=== PATIENT | male | born 1980 | race Caucasian/White ===

== ENCOUNTER 2019-03-25 19:17 | Observation (INO) ==
[2019-03-25 19:39] LABS: Basophils # 0.1 K/mm3 (0-0.2); Basophils % 0.4 % (0.1-2.0); Eosinophils # 0.2 K/mm3 (0.0-0.4); Eosinophils % 1.6 % (0.1-12.0); Hematocrit 43.7 % (42.0-52.0); Hemoglobin 14.5 g/dL (14.1-18.0); Lymphocytes # 5.3 K/mm3 (0.7-4.5); Lymphocytes % 49.5 % (10-50); Mean Corpuscular HGB Conc 33.2 g/dL (31.8-35.4); Mean Corpuscular Volume 97.7 fl (80-94); Mean Platelet Volume 7.5 fl (7.4-10.4); Monocytes # 0.6 K/mm3 (0.1-1.0); Monocytes % 5.3 % (1.7-9.3); Neutrophils # 4.6 K/mm3 (1.8-7.8); Neutrophils % 43.1 % (37.0-80.0); Platelet Count 317 K/mm3 (142-424); Red Blood Count 4.48 M/mm3 (4.60-6.20); Red Cell Distribution Width 13.2 % (11.5-17.5); White Blood Count 10.8 K/mm3 (4.8-10.8)
--- NOTE | 2019-03-25 19:50 | Emergency Department Note ---
ED Disposition Clinical Impression: Tobacco use Chest pain Qualifiers: Chest pain type: precordial pain Qualified Code(s): R07.2 - Precordial pain Disposition: Admitted as Observation Condition on Discharge: Good Referrals: Provider,Referral, [Primary Care Provider] - - Critical Care Critical Care Time: No Attestation: On 03/25/19, the high probability of a clinically significant, sudden or life threatening deterioration of the following system(s) required my full and direct attention, intervention and personal management. The time I documented below is in addition to time spent performing reported procedures but includes the following listed in this critical care notation. Medical Decision Making - Medical Records Medical records reviewed: Yes: I reviewed the patient's medical records. - Emre Inquiry Pt receiving controlled substance: No Vital Signs: 03/25/19 19:18 03/25/19 19:30 03/25/19 19:42 Temperature 99.6 F Temperature Source Oral Pulse Rate [Left Radial] 110 H 86 80 Respiratory Rate 18 20 Blood Pressure [Right Arm] 144/93 H 123/91 H 105/87 L Blood Pressure Mean [Right Arm] 110 101 93 Blood Pressure Source [Right Arm] Automatic Cuff Automatic Cuff Automatic Cuff Blood Pressure Position [Right Arm] Sitting Sitting Sitting 02 Sat by Pulse Oximetry 99 96 96 Oxygen Delivery Method Room Air Room Air Room Air Oxygen Flow Rate (LPM) 03/25/19 19:47 03/25/19 20:15 03/25/19 20:29 Temperature Temperature Source Pulse Rate [Left Radial] 82 71 62 Respiratory Rate 15 16 Blood Pressure [Right Arm] 127/83 112/80 106/66 L Blood Pressure Mean [Right Arm] 97 90 79 Blood Pressure Source [Right Arm] Automatic Cuff Blood Pressure Position [Right Arm] Sitting 02 Sat by Pulse Oximetry Oxygen Delivery Method Oxygen Flow Rate (LPM) 97 - Lab Data Lab results reviewed: Yes: I reviewed the patient's lab results. Lab Results 03/25/19 19:18: WBC 10.8, RBC 4.48 L, Hgb 14.5, Hct 43.7, MCV 97.7 H, MCH 32.4 H , MCHC 33.2, RDW 13.2, Plt Count 317, MPV 7.5, Neut % (Auto) 43.1, Lymph % (Auto) 49.5, [place] % (Auto) 5.3, Eos % (Auto) 1.6, Baso % (Auto) 0.4, Neut # (Auto) 4.6, Lymph # (Auto) 5.3 H, [place] # (Auto) 0.6, Eos # (Auto) 0.2, Baso # (Auto) 0.1 03/25/19 19:18: Sodium 140, Potassium 3.9, Chloride 103, Carbon Dioxide 28, Anion Gap 12.9, BUN 15, Creatinine 1.18, Estimated Creat Clear 131, Estimated GF R 68, Est GFR ( Amer) 83, Glucose 91, Calcium 8.4 L, Troponin I < 0.02 Result diagrams: 03/25/19 19:18 03/25/19 19:18 Orders (Tests/Meds): ED MEDICATIONS Generic Name Dose Route Start Last Admin Trade Name Freq PRN Reason Stop Dose Admin Sodium Chloride 1,000 mls @ 999 mls/hr 03/25/19 19:30 03/25/19 19:34 Sod Chlor 0.9% 1000ml Bag IV 03/25/19 20:30 999 mls/hr .Q1H1M BHAVIN Administration Discontinued Medications Generic Name Dose Route Start Last Admin Trade Name Freq PRN Reason Stop Dose Admin Aspirin 324 mg 03/25/19 19:30 03/25/19 19:34 Aspirin 81mg Chewable Tablet PO 03/25/19 19:31 324 mg ONCE ONE Administration Nitroglycerin 0.4 mg 03/25/19 19:30 03/25/19 19:35 Nitrostat 0.4mg Sl Tablet SL 03/25/19 19:31 0.4 mg ONCE ONE Administration Nitroglycerin 1 gm 03/25/19 19:56 03/25/19 19:57 Nitroglycerin 1 Inch Oint Udp TD 03/25/19 19:57 1 gm ONCE ONE Administration ORDERS Category Date Time Status XR chest 2V Stat Exams 03/25/19 19:29 Taken Basic Metabolic Panel Stat Lab 03/25/19 19:18 Results C-Reactive Protein Stat Lab 03/25/19 19:18 Results Complete Blood Count Auto Diff Stat Lab 03/25/19 19:18 Results Erythrocyte Sedimentation Rate Stat Lab 03/25/19 19:18 Results Troponin I Q3H Lab 03/25/19 22:45 Ordered Troponin I Q3H Lab 03/26/19 01:45 Ordered Troponin I Stat Lab 03/25/19 19:18 Results - Radiology Data #1 Image(s): Chest Image Reviewed: Yes I reviewed the patient's radiology image Preliminary Findings: Normal/NAD - ECG Data Tracing #1 Arrhythmias present: sinus tach Ischemic changes: non-specific ST-T wave changes - Physician Consults Physician Consulted: shiva Reason -: Admission Chest Pain HPI - General Chief Complaint: Chest Pain Stated Complaint: CP Time Seen by Provider: 03/25/19 19:45 Mode of Arrival: Ambulatory Source of Information: Patient, Medical Record Limitations: No Limitations Description of Symptoms (Recalled from ER Triage Doc. by RN): pt stated he has been having chest pain since 10am this morning. pt describes his pain as a sharp pain in the middle of his chest and some numbness in his left arm. pt rates his pain at a 7 at this time. - History of Present Illness HPI narrative: pt with ant chest pain during the day with no def radiation - he has hx of heart attack many yrs ago from energy drinks - he uses tob, not diabetic MD complaint: chest pain indicative of cardiac Onset (ago): hour(s) Duration: intermittent Activity at onset: during rest Pain location: left chest Severity: moderate Quality: sharp Pain radiation: LUE Risk Factors for CAD: Family Hx of CAD, Smoking Treatments prior to or on arrival for Cardiac Chest Pain: none - JENSEN Score for Non-Stemi Age of Patient: 40-49 years old Heart Rate: 110-149 bpm Systolic Blood Pressure: 140-159 mmHg Serum Creatinine: 0.80-1.19 mg/dl CHF [place] Class: I-No CHF Other Risk Factors: None Non-Stemi Risk Score: 80 - Related Data Home Medications Medication Instructions Recorded Confirmed No Known Home Medications 07/15/17 03/25/19 Allergies Allergy/AdvReac Type Severity Reaction Status Date / Time No Known Allergies Allergy Verified 07/15/17 15:37 [facility] History - Hepatitis A Screen Drug use history?: No High risk sexual behaviors?: No History of sexually transmitted infection?: No Currently employed?: No Childcare worker?: No Do you have indoor plumbing?: Yes Do you have electricity?: Yes Attestation statement:: This patient has been screened for Hepatitis A risk factors. I have reviewed the patient's past medical history: Yes Medical History: Denies:: Internal Pacemaker Other Surgeries: No: Pacemaker - Social History Smoking Status: Current every day smoker # Packs/Day (cigarettes): 2 Alcohol Intake: never Occupational Status: employed ROS Obtained: Yes All systems reviewed & no additional complaints - Constitutional Constitutional: Denies fever(s) - Eyes Eyes: Denies change in vision - ENT Ears, Nose, Mouth, and Throat: Denies sore throat - Cardiovascular Cardiovascular: Reports chest pain, Denies dyspnea - Respiratory Respiratory: No cough - Gastrointestinal Gastrointestingal: Denies: abdominal pain - Genitourinary Male Genitourinary: Denies hematuria - Musculoskeletal Musculoskeletal: Denies joint swelling - Integumentary/Breasts Skin/Breast: Denies rash - Neurologic Neurologic: Denies focal weakness, Denies seizure-like activity Physical Exam - General General appearance: alert - Head Head exam: normocephalic - Eye Eye exam: Present: PERRL, EOMI - ENT ENT exam: Present: mucous membranes moist - Neck Neck exam: Present: trachea midline - Respiratory Respiratory exam: Absent: respiratory distress - Cardiovascular Cardiovascular exam: Present: regular rate, systolic murmur - Abdominal Exam Abdominal exam: Present: soft - Extremities Exam Extremities exam: Present: full ROM. Absent: joint swelling - Neurological Exam Neurological exam: Present: alert, oriented X3, CN II-XII intact - Psychiatric Psychiatric exam: Present: normal affect - Skin Skin exam: Absent: rash
[2019-03-25 19:52] LABS: Anion Gap 12.9 mEq/L (5-15); Blood Urea Nitrogen 15 mg/dL (7-18); Calcium 8.4 mg/dL (8.5-10.1); Carbon Dioxide 28 mmol/L (21.0-32.0); Chloride 103 mmol/L (98-107); Glucose 91 mg/dL (74-106); Sodium 140 mmol/L (136-145)
[2019-03-25 20:42] LABS: Erythrocyte Sedimentation Rate 58 mm/hr (0-15)
[2019-03-25 20:56] LABS: C-Reactive Protein < 0.2 mg/dL (0.0-0.9)
[2019-03-26 06:20] LABS: Basophils % 0.4 % (0.1-2.0); Eosinophils # 0.2 K/mm3 (0.0-0.4); Eosinophils % 1.9 % (0.1-12.0); Hematocrit 39.9 % (42.0-52.0); Hemoglobin 13.1 g/dL (14.1-18.0); Lymphocytes # 4.6 K/mm3 (0.7-4.5); Lymphocytes % 46.5 % (10-50); Mean Corpuscular HGB Conc 32.9 g/dL (31.8-35.4); Mean Corpuscular Volume 98.8 fl (80-94); Mean Platelet Volume 7.4 fl (7.4-10.4); Monocytes # 0.5 K/mm3 (0.1-1.0); Monocytes % 4.6 % (1.7-9.3); Neutrophils # 4.6 K/mm3 (1.8-7.8); Neutrophils % 46.6 % (37.0-80.0); Platelet Count 263 K/mm3 (142-424); Red Blood Count 4.03 M/mm3 (4.60-6.20); Red Cell Distribution Width 13.2 % (11.5-17.5)
[2019-03-26 06:34] LABS: Anion Gap 10.9 mEq/L (5-15); Calcium 7.8 mg/dL (8.5-10.1); Chol/HDL Ratio 5.1 (1-3.5)
--- NOTE | 2019-03-26 07:24 | Pharmacy Consult Notes ---
[facility] Pharmacy VTE Monitoring - Patient Demographics Admission date: 03/25/19 Report Date: 03/26/19 Time: 07:24 Allergies/Adverse Reactions: Patient Allergies No Known Allergies Allergy (Verified 07/15/17 15:37) Height: 1.85 m Weight: 83.546 kg Patient Problems: Current Active Problems Chest pain (Acute) Tobacco use (Acute) - VTE Risk Labs: VTE Related Lab Results Hgb 13.1 g/dL (14.1-18.0) L 03/26/19 05:44 Hct 39.9 % (42.0-52.0) L 03/26/19 05:44 Plt Count 263 K/mm3 (142-424) 03/26/19 05:44 BUN 12 mg/dL (7-18) 03/26/19 05:44 Creatinine 0.90 mg/dL (0.70-1.30) D 03/26/19 05:44 Estimated Creat Clear 129 mL/min (50-200) 03/26/19 05:44 Was VTE Risk Assessment Performed: Yes VTE Score: 3 VTE Risk Level: Low Risk Clinical Trial Participant: No - Prophylaxis VTE Prophylaxis Ordered?: Yes Types of VTE Prophylaxis: TEDS Knee High
--- NOTE | 2019-03-26 08:48 | History & Physical Report ---
*Admission Date: 03/25/19 *Chief complaint: Chest pain with shortness of air *History of present illness: 38-year-old white male with a history of "something happened with a heart attack" about 10 years ago after he was "addicted to [employer] energy drinks" who came to the emergency department yesterday evening with chest pain. Reported sharp chest pain that was worse throughout the day, worse with activity and cause some shortness of air. Minimal relief with nitroglycerin. Apparently 10 years ago he was admitted to the hospital in [facility], was told he might of had a light heart attack because of his significant consumption of energy drinks, and was recommended to come back for an outpatient heart cath but he did not do this. Since that time has remained a heavy smoker but is off the energy drinks but became very concerned with his chest pain syndrome yesterday. [facility] History I have reviewed the patient's past medical history: Yes Medical History: Reports:: Myocardial Infarction Denies:: Cancer, Diabetes Mellitus Type 1, Diabetes Mellitus Type 2, Internal Pacemaker, MRSA *Have you ever received a pneumonia vaccine?: No *Have you received a flu vaccine this season?: No Other Surgeries: Yes: Hernia Repair. No: Pacemaker Amputation: No Fractures: Yes - *Social History Educational Level: Completed High School Smoking Status: Current every day smoker Tobacco Type: cigarettes # Packs/Day (cigarettes): 3 Alcohol Intake: never *Occupational Status:: employed Housing: other Household Members: significant other, children *Travel in the last 8 weeks: Inside the [facility] Family Hx:: Heart Attack Review of Systems - Review of Systems Review of systems:: pertinent systems reviewed and negative unless documented below See HPI, otherwise 10 point review of systems negative - *Neurologic Denies localized weakness, Denies seizure-like activity Meds Home Medications Medication Instructions Recorded Confirmed Type No Known Home Medications 07/15/17 03/25/19 History Allergies Allergy/AdvReac Type Severity Reaction Status Date / Time No Known Allergies Allergy Verified 07/15/17 15:37 Exam Vital signs and Labs for Last 24 Hours: Temp Pulse Resp BP Pulse Ox 98.2 F 57 L 17 115/64 96 03/26/19 07:34 03/26/19 07:34 03/26/19 07:34 03/26/19 07:34 03/26/19 07:34 Laboratory Results - last 24 hr 03/25/19 19:18: WBC 10.8, RBC 4.48 L, Hgb 14.5, Hct 43.7, MCV 97.7 H, MCH 32.4 H , MCHC 33.2, RDW 13.2, Plt Count 317, MPV 7.5, Neut % (Auto) 43.1, Lymph % (Auto) 49.5, [place] % (Auto) 5.3, Eos % (Auto) 1.6, Baso % (Auto) 0.4, Neut # (Auto) 4.6, Lymph # (Auto) 5.3 H, [place] # (Auto) 0.6, Eos # (Auto) 0.2, Baso # (Auto) 0.1, ESR 58 H 03/25/19 19:18: Sodium 140, Potassium 3.9, Chloride 103, Carbon Dioxide 28, Anion Gap 12.9, BUN 15, Creatinine 1.18, Estimated Creat Clear 131, Estimated GFR 68, Est GFR ( Amer) 83, Glucose 91, Calcium 8.4 L, Troponin I < 0.02, C-Reactive Protein < 0.2 03/25/19 22:48: Troponin I < 0.02 03/26/19 01:40: Troponin I < 0.02 03/26/19 05:44: WBC 10.0, RBC 4.03 L, Hgb 13.1 L, Hct 39.9 L, MCV 98.8 H, MCH 32.5 H, MCHC 32.9, RDW 13.2, Plt Count 263, MPV 7.4, Neut % (Auto) 46.6, Lymph % (Auto) 46.5, [place] % (Auto) 4.6, Eos % (Auto) 1.9, Baso % (Auto) 0.4, Neut # (Auto) 4.6, Lymph # (Auto) 4.6 H, [place] # (Auto) 0.5, Eos # (Auto) 0.2, Baso # (Auto) 0.0 03/26/19 05:44: Sodium 141, Potassium 3.9, Chloride 109 H, Carbon Dioxide 25, Anion Gap 10.9, BUN 12, Creatinine 0.90 D, Estimated Creat Clear 129, Estimated GFR 93, Est GFR ( Amer) 113 D, Glucose 98, Calcium 7.8 L, Magnesium 1.8, Triglycerides 211 H, Cholesterol 142, LDL Cholesterol 72, VLDL Cholesterol 42 H, HDL Cholesterol 28, Cholesterol/HDL Ratio 5.1 H I & O for Last 24 hours: Intake & Output 03/23/19 03/24/19 03/25/19 03/26/19 11:59 11:59 11:59 11:59 Intake Total 428 / 428 Balance 428 / 428 Weight 184 lb 3 oz Narrative: Patient is alert. Oriented. Heavily bearded. Oropharynx with poor dentition. Lungs clear, heart rate regular. Abdomen soft, Neurologic M intact. Cranial nerves intact. No skin rash. Assessment and Plan (1) Chest pain Current visit: Yes Status: Acute Qualifiers: Chest pain type: precordial pain Qualified Code(s): R07.2 - Precordial pain Category: Medical Code(s): R07.9 - Chest pain, unspecified Significant risk factors, troponins negative. Admit for cardiology consult, echocardiogram has been done. Report pending (2) Tobacco use Current visit: Yes Status: Acute Category: Medical Code(s): Z72.0 - Tobacco use
--- NOTE | 2019-03-26 09:46 | Consult Report ---
History of Present Illness Consult date: 03/26/19 Requesting physician: German Adler Consult reason: chest pain Chief complaint: chest pain Additional Medical History:: 1. history of DE 2. Tobacco user History of present illness: This is a 38-year-old white gentleman who presented to the emergency department with complaints of chest pain. He states that he had a stabbing sensation in the right side of his chest. He states that this pain radiated all the way over to his left arm and cause numbness. He states that this was a 10 out of 10 pain. This chest pain was associated with shortness of breath and nausea. He denies any vomiting or diaphoresis. The patient states the pain was worsened with exertion and his pain did improve with nitroglycerin given here at the emergency department. The patient reports that he was admitted to the hospital in [facility] approximately 10 years ago and was told he had a light heart attack due to his significant consumption of [employer] energy drinks. The patient reports that an outpatient cardiac cath was recommended but he failed to follow-up. The patient states that he has had no chest pain since then until now. The patient reports that he is still having some slight chest pain this morning but it is much better. The patient reports that he takes no home medications. He does smoke about 2-1/2 to 3 packs/day. He denies any fever, chills, vomiting, diarrhea, PND or orthopnea. He denies any lower extremity edema. The patient does report that his father at the age of 59 from an DE. [facility] History I have reviewed the patient's past medical history: Yes Medical History: Reports:: Myocardial Infarction Denies:: Cancer, Diabetes Mellitus Type 1, Diabetes Mellitus Type 2, Internal Pacemaker, MRSA *Have you ever received a pneumonia vaccine?: No *Have you received a flu vaccine this season?: No Other Surgeries: Yes: Hernia Repair. No: Pacemaker Amputation: No Fractures: Yes - *Social History Educational Level: Completed High School Smoking Status: Current every day smoker Tobacco Type: cigarettes # Packs/Day (cigarettes): 3 Alcohol Intake: never *Occupational Status:: employed Housing: other Household Members: significant other, children *Travel in the last 8 weeks: Inside the [place] Family Hx:: Coronary Artery Disease, Heart Attack (Father from [place] at 59) Meds Home Medications Medication Instructions Recorded Confirmed Type No Known Home Medications 07/15/17 03/25/19 History Allergies Allergy/AdvReac Type Severity Reaction Status Date / Time No Known Allergies Allergy Verified 07/15/17 15:37 Review of Systems - Review of Systems Review of systems:: pertinent systems reviewed and negative unless documented below - *Cardiovascular Reports chest pain, Reports chest pain at rest, Reports chest pain with activity, Reports shortness of breath, Reports shortness of breath with activity - *Respiratory Reports shortness of breath, Reports shortness of breath with activity - *Gastrointestinal Reports nausea - *Neurologic Denies localized weakness, Denies seizure-like activity Exam Vital signs and Labs for Last 24 Hours: Temp Pulse Resp BP Pulse Ox 98.2 F 57 L 17 115/64 96 03/26/19 07:34 03/26/19 07:34 03/26/19 07:34 03/26/19 07:34 03/26/19 07:34 Laboratory Results - last 24 hr 03/25/19 19:18: WBC 10.8, RBC 4.48 L, Hgb 14.5, Hct 43.7, MCV 97.7 H, MCH 32.4 H , MCHC 33.2, RDW 13.2, Plt Count 317, MPV 7.5, Neut % (Auto) 43.1, Lymph % (Auto) 49.5, [place] % (Auto) 5.3, Eos % (Auto) 1.6, Baso % (Auto) 0.4, Neut # (Auto) 4.6, Lymph # (Auto) 5.3 H, [place] # (Auto) 0.6, Eos # (Auto) 0.2, Baso # (Auto) 0.1, ESR 58 H 03/25/19 19:18: Sodium 140, Potassium 3.9, Chloride 103, Carbon Dioxide 28, Anion Gap 12.9, BUN 15, Creatinine 1.18, Estimated Creat Clear 131, Estimated GFR 68, Est GFR ( Amer) 83, Glucose 91, Calcium 8.4 L, Troponin I < 0.02, C-Reactive Protein < 0.2 03/25/19 22:48: Troponin I < 0.02 03/26/19 01:40: Troponin I < 0.02 03/26/19 05:44: WBC 10.0, RBC 4.03 L, Hgb 13.1 L, Hct 39.9 L, MCV 98.8 H, MCH 32.5 H, MCHC 32.9, RDW 13.2, Plt Count 263, MPV 7.4, Neut % (Auto) 46.6, Lymph % (Auto) 46.5, [place] % (Auto) 4.6, Eos % (Auto) 1.9, Baso % (Auto) 0.4, Neut # (Auto) 4.6, Lymph # (Auto) 4.6 H, [place] # (Auto) 0.5, Eos # (Auto) 0.2, Baso # (Auto) 0.0 03/26/19 05:44: Sodium 141, Potassium 3.9, Chloride 109 H, Carbon Dioxide 25, Anion Gap 10.9, BUN 12, Creatinine 0.90 D, Estimated Creat Clear 129, Estimated GFR 93, Est GFR ( Amer) 113 D, Glucose 98, Calcium 7.8 L, Magnesium 1.8, Triglycerides 211 H, Cholesterol 142, LDL Cholesterol 72, VLDL Cholesterol 42 H, HDL Cholesterol 28, Cholesterol/HDL Ratio 5.1 H I & O for Last 24 hours: Intake & Output 03/23/19 03/24/19 03/25/19 03/26/19 23:59 23:59 23:59 23:59 Intake Total 428 / 428 Balance 428 / 428 Weight 184 lb 3 oz Narrative: EKG is sinus tachycardia with a rate of 112. Telemetry strip shows sinus rhythm with a rate of 59. - Constitutional no acute distress, average body habitus - *Routine HEENT Exam Head: Present: normocephalic, atraumatic Eye: Present: EOMI, PERRL ENT: Present: mucous membranes moist - *Routine Neck Exam Present: supple, full ROM, normal carotid upstroke. Absent: JVD, carotid bruit, lymphadenopathy - *Routine Respiratory Exam Present: CTA bilaterally - *Routine Cardiovascular Exam Present: RRR, Normal S1, Normal S2. Absent: murmur - *Routine Abdominal Exam Present: soft, normoactive bowel sounds. Absent: tenderness, distended - *Routine Extremities Exam Present: full ROM, pulses intact, normal capillary refill. Absent: cyanosis, clubbing, edema - *Routine Skin Exam Present: intact, warm. Absent: erythema, rash - *Routine Neurological Exam Present: alert, oriented X3, CN II-XII intact. Absent: sensory deficit, motor deficit - Routine Psychiatric Exam Present: normal affect, normal thought process - Detailed Eye Exam Eyelids: Left normal inspection Assessment and Plan (1) Chest pain Current visit: Yes Status: Acute Qualifiers: Chest pain type: precordial pain Qualified Code(s): R07.2 - Precordial pain Category: Medical Code(s): R07.9 - Chest pain, unspecified (2) Tobacco use Current visit: Yes Status: Chronic Category: Medical Code(s): Z72.0 - Tobacco use (3) History of myocardial infarction Current visit: Yes Status: Chronic Category: Medical Code(s): I25.2 - Old myocardial infarction (4) Atypical chest pain Current visit: No Status: Acute Category: Medical Code(s): R07.89 - Other chest pain - Assessment and plan all Dx Assessment and Plan for all problems:: Plan: 1. The patient was admitted to the hospital with chest pain. He has ruled out for an DE with 3- troponins. He states that he is still having chest pain but it has improved since being in the hospital. The patient reports a history of an DE about 10 years ago from his heavy consumption of [employer] energy drinks. The patient reports that he was supposed to be set up for an outpatient heart cath but he never returned to follow-up. The patient is currently not on any cardiac meds. The patient's father did of an DE at the age of 59. Given his chest pain and atypical angina, we will plan to proceed with GXT Myoview stress testing to rule out ischemia. 2. The patient should be on antianginals. We will start him on Norvasc 2.5 mg p.o. daily. His heart rate is too low to start him on a beta-kathy. 3. Start aspirin 81 mg daily 4. Start Lipitor 20 mg p.o. nightly for his history of DE. 5. His echocardiogram is currently pending 6. The patient does smoke 2-1/2 to 3 packs/day. Tobacco cessation is highly advised and counseled. 7. Further recommendations will be made pending the patient's response to treatment and the results of his Myoview stress test and echocardiogram today. Thank you for the opportunity to help participate in the care of this patient.
--- NOTE | 2019-03-26 17:28 | Discharge Summary ---
General - General Admission date:: 03/25/19 Discharge date: 03/26/19 HPI HPI: 38-year-old white male with a history of "something happened with a heart attack" about 10 years ago after he was "addicted to [employer] energy drinks" who came to the emergency department yesterday evening with chest pain. Reported sharp chest pain that was worse throughout the day, worse with activity and cause some shortness of air. Minimal relief with nitroglycerin. Apparently 10 years ago he was admitted to the hospital in [facility], was told he might of had a light heart attack because of his significant consumption of energy drinks, and was recommended to come back for an outpatient heart cath but he did not do this. Since that time has remained a heavy smoker but is off the energy drinks but became very concerned with his chest pain syndrome yesterday. Hospital Course Hospital Course: Patient was admitted, ruled out for myocardial infarction, cardiology consult was obtained and they recommended stress testing given his fairly low risk. he was subjected to imaging stress test which was unremarkable, slightly depressed ejection fraction, at 55% for age, but normal flow in the myocardial images. Patient was relieved to find this out, felt better, and he will be discharged home. Low-dose carvedilol for blood pressure issues, omeprazole for possible GERD given his high risk GERD symptoms, and follow-up in the office as scheduled. Objective Vital signs: Temp Pulse Resp BP Pulse Ox 97.8 F 60 18 125/78 97 03/26/19 15:41 03/26/19 16:00 03/26/19 15:41 03/26/19 15:41 03/26/19 15:41 no acute distress, thin - *Routine HEENT Exam Head: Present: normocephalic, atraumatic Eye: Present: EOMI - *Routine Neck Exam Present: supple, full ROM. Absent: JVD - *Routine Respiratory Exam Present: CTA bilaterally - *Routine Cardiovascular Exam Present: RRR, Normal S1, Normal S2 - *Routine Abdominal Exam Present: soft, normoactive bowel sounds - *Routine Extremities Exam Absent: cyanosis, clubbing, edema - *Routine Skin Exam Present: intact - *Routine Neurological Exam Present: alert, oriented X3 Results Labs on day of discharge: Labs from last 24 hours 12/18/19 12/18/19 12/18/19 05:44 05:44 01:40 WBC 10.0 RBC 4.03 L Hgb 13.1 L Hct 39.9 L MCV 98.8 H MCH 32.5 H MCHC 32.9 RDW 13.2 Plt Count 263 MPV 7.4 Neut % (Auto) 46.6 Lymph % (Auto) 46.5 Durham % (Auto) 4.6 Eos % (Auto) 1.9 Baso % (Auto) 0.4 Neut # (Auto) 4.6 Lymph # (Auto) 4.6 H Durham # (Auto) 0.5 Eos # (Auto) 0.2 Baso # (Auto) 0.0 ESR Sodium 141 Potassium 3.9 Chloride 109 H Carbon Dioxide 25 Anion Gap 10.9 BUN 12 Creatinine 0.90 D Estimated Creat Clear 129 Estimated GFR 93 Est GFR ( Amer) 113 D Glucose 98 Calcium 7.8 L Magnesium 1.8 Troponin I < 0.02 C-Reactive Protein Triglycerides 211 H Cholesterol 142 LDL Cholesterol 72 VLDL Cholesterol 42 H HDL Cholesterol 28 Cholesterol/HDL Ratio 5.1 H 03/25/19 03/25/19 03/25/19 22:48 19:18 19:18 WBC 10.8 RBC 4.48 L Hgb 14.5 Hct 43.7 MCV 97.7 H MCH 32.4 H MCHC 33.2 RDW 13.2 Plt Count 317 MPV 7.5 Neut % (Auto) 43.1 Lymph % (Auto) 49.5 Durham % (Auto) 5.3 Eos % (Auto) 1.6 Baso % (Auto) 0.4 Neut # (Auto) 4.6 Lymph # (Auto) 5.3 H Durham # (Auto) 0.6 Eos # (Auto) 0.2 Baso # (Auto) 0.1 ESR 58 H Sodium 140 Potassium 3.9 Chloride 103 Carbon Dioxide 28 Anion Gap 12.9 BUN 15 Creatinine 1.18 Estimated Creat Clear 131 Estimated GFR 68 Est GFR ( Amer) 83 Glucose 91 Calcium 8.4 L Magnesium Troponin I < 0.02 < 0.02 C-Reactive Protein < 0.2 Triglycerides Cholesterol LDL Cholesterol VLDL Cholesterol HDL Cholesterol Cholesterol/HDL Ratio DS: Diagnosis - Discharge Diagnosis (1) Chest pain Status: Resolved (2) Tobacco use Status: Chronic (3) History of myocardial infarction Status: Ruled-out (4) Atypical chest pain Status: Chronic Discharge Plan - Patient Discharge Instructions Patient Instructions: Cardiac Catheterization, Heart-Healthy Diet, DI for Surgical Site Infection, DI for Chest Pain, Reasons to Quit Smoking, How to Quit Smoking - Follow up Plan Follow up with: Valarie Dinh APRN [Nurse Practitioner] - 03/28/19 2:00 pm Unknown provider or service follow up:: 03/26/19 17:28 [facility] - [address] [place] [address] Disposition: Home, Self-Alf Medications: Home Medications Medication Instructions Recorded Confirmed Type No Known Home Medications 07/15/17 03/25/19 History Omeprazole [Omeprazole 20mg 20 mg PO DAILY #30 cap 03/26/19 Rx Capsule] carvediloL [Carvedilol 6.25mg Tab] 6.25 mg PO BID #60 tab 03/26/19 Rx Prescriptions/Medication Reconciliation: New carvediloL [Carvedilol 6.25mg Tab] 6.25 mg PO BID #60 tab Omeprazole [Omeprazole 20mg Capsule] 20 mg PO DAILY #30 cap No Action No Known Home Medications - Problem Reconciliation Problems Reviewed?: Yes
--- NOTE | 2019-03-27 09:17 | Electrocardiograph Report ---
APPROVED REPORT Exam: Resting ECG HR:112 bpm ECG Measurements Heart Rate 112 AXES AZ 118 P 74 QRSd 76 QRS 75 QT 312 T81 QTc 425 <Conclusion> Sinus tachycardia Otherwise normal ECG Electronically signed by : Willy Esposito, 03/27/2019 09:17:28
--- NOTE | 2019-03-27 15:23 | Cardiology Report ---
APPROVED REPORT Exam: Exercise Treadmill Technologist: sherin davila, Ht: 6 ft 3 in Wt: 189 lbs BSA: 2.14 m2 HR: 67 bpm BP: 1220/73 mmHg Indications: CP, SOB Medical History Allergies: No known drug allergies Cardiac Risk Factors: FHX of CAD, Smoking Stress Test Details Test: Raji HR Resting HR: 71 bpmMax Heart Rate (APMHR): 180 bpm Max HR Achieved: 166 bpmTarget HR (85% APMHR): 153 bpm % of APMHR: 92 Recovery HR: 110 bpm BP Resting BP: 120/73 mmHg Max BP: 165/91 mmHg Recovery BP: 152.0/91.0 mmHg ECG Resting ECG: NSR,early repolarazation changes Clinical Exercise duration: 07:40 min Highest Stage Achieved: Exercise capacity: 10.1 METs Stress ECG Conclusion Patient C/O sharp right sided chest pain, wose with inhalation. There was rare PVC's. Normal ST response to exercise. Normal GXT with atypical CP. Images reportrd seperately. Test Summary REST.......Standing REST.......Sitting REST04:130.00.071.120/ 73.. Stage 101:0010.01.7101.... Stage 102:0010.01.7112.... Stage 103:0010.01.7114.135/ 70.. Stage 201:0012.02.5123.... Stage 202:0012.02.5126.... Stage 203:0012.02.5133.156/ 80.. Stage 3.......Cardiolite injected Stage 301:0014.03.4154.... Stage 301:4014.03.4165...Stop exercise at 07:40 FRLZOYEZ09:000.00.0136.... ICQJGFKE39:000.00.0113.... YNGFMOGT19:000.00.0103.152/ 91.. XUJGHQAM42:000.00.093.128/ 84.. OOWWOZLM71:000.00.083.128/ 84.. DSBLSCJC10:170.00.086.128/ 84.. Electronically signed by : Tino Bucio, 03/27/2019 15:23:07
--- NOTE | 2019-03-27 15:46 | Cardiology Report ---
APPROVED REPORT EXAM: Comprehensive 2D, Doppler, and color-flow Echocardiogram Home Health Travel Ot: Kayleen Clifford RVT Ht: 6 ft 2 in Wt: 189lbs BSA: 2.12 BP: 105/87 mmHg Indications: Chest Pain,Smoker,Family hx heart disease 2D Dimensions LVOT 1.52 cm (M/F) 1.5-2.5 M-Mode Dimensions RVDd 2.45 cm (0.9-2.6)LA Diam 2.80 cm (1.9-4.0) LVDd 4.39 cm (3.5-5.7)Ao Diam 2.30 cm (2.0-3.7) LVDs 2.88 cm (3.5-5.7)AV Cusp 1.70 cm (1.5-2.6) IVSd 0.87 cm (0.6-1.1)PWd 0.77 cm (0.6-1.1) EF (Teich) 63.60% FS 34.40% EDV (Teich) 87.20 mLESV (Teich) 31.70 mL LV Diastology E/A Ratio 2.16 Mitral Valve MV A Velocity 47.00 (40-130 cm/s) Left Ventricle Left atrium is normal size, left ventricle is normal size, there is no concentric left ventricular hypertrophy, visually estimated ejection fraction 55% with no regional wall motion abnormality. Diastolic parameters are within normal range. Right Ventricle Right atrium is normal size, right ventricle is mildly enlarged with normal contractility. Aortic Valve Aortic valve is grossly normal, there is no aortic stenosis aortic insufficiency. Mitral Valve Mitral valve is grossly normal, there is mild mitral regurgitation. Tricuspid Valve Tricuspid valve is grossly normal, there is mild tricuspid regurgitation. Pulmonic Valve Pulmonic valve is poorly visualized. Great Vessels Aortic root is normal size. Pericardium No significant pericardial effusion noted. Conclusion 1. Normal left ventricular size, preserved left ventricular systolic function, visually estimated ejection fraction 55% with no regional wall motion abnormality, diastolic parameters are within normal range. 2. Mildly enlarged right ventricle with normal contractility. 3. Mild mitral and tricuspid regurgitation. 4. No significant pericardial effusion noted. Electronically signed by : Tino Bucio, 03/27/2019 15:46:07
== END 2019-03-26 17:55 | disposition home or self-care (01) ==
LOC: 2ND 19:17 → ER 19:17 → 2ND 21:36
PROVIDERS: ADMIT Internal Medicine Adolescent Medicine; ATTEND Internal Medicine Adolescent Medicine
CPT/HCPCS: 36415; 71020; 71046; 78452; 80048; 80061; 83735; 84484; 85025; 85651; 86140; 93005; 93017; 93306; 96365; 99285; A9502; G0378

== ENCOUNTER 2020-12-26 16:50 | Emergency (ER) | payer MEDICAID, SELFPAY ==
[2020-12-26 18:25] VITALS: BP 134/86; PULSE 81; RESP 18; TEMP 36.7; O2SAT 98; BMI 30.9
--- NOTE | 2020-12-26 18:36 | HMH.EDUTC ---
[facility] [place] Clinical Impression: Dental abscess Disposition: Home, Self-Care Condition on Discharge: Good Instructions: DI for Tooth Abscess, Tooth Abscess, Amoxicillin and Clavulanic Acid, Ibuprofen Additional Instructions: Take antibiotics as prescribed Use dental balls as directed in the [facility] for pain Take Ibuprofen as prescribed for pain Follow up with Dentist for further treatment and evaluation of broken tooth Return if needed Straight to ER If any life threatening symptoms Prescriptions: Amoxicillin/Potassium Clav [Augmentin 875-125 Tablet] 1 tab PO Q12H 10 Days #20 tab Transmission Status: Pending to [id number] Ibuprofen [Ibuprofen 800mg Tablet] 800 mg PO TIDP PRN #20 tab PRN Reason: Moderate Pain Transmission Status: Pending to [id number] Referrals: Provider,Referral, [Primary Care Provider] - As needed Lacho Granda [Referring] - Time of Disposition: 18:44 Medical Decision Making - Emre Inquiry Pt receiving controlled substance: No Emre was queried for this patient: No Vital Signs: 12/26/20 18:25 Temperature 98.0 F Temperature Source Oral Pulse Rate [Right Brachial] 81 Respiratory Rate 18 Blood Pressure [Right Arm] 134/86 Blood Pressure Mean [Right Arm] 102 Blood Pressure Source [Right Arm] Automatic Cuff Blood Pressure Position [Right Arm] Sitting 02 Sat by Pulse Oximetry 98 Oxygen Delivery Method Room Air Orders (Tests/Meds): ED MEDICATIONS Discontinued Medications Generic Name Dose Route Start Last Admin Trade Name Freq PRN Reason Stop Dose Admin Lidocaine HCl 15 ml 12/26/20 18:36 Lidocaine 2% Viscous Rosalva 15ml Udc PO 12/26/20 18:37 ONCE [place] [facility] [place] - General Stated complaint: dental pain with swelling Time Seen by Provider: 12/26/20 18:36 Mode of Arrival: Ambulatory Source of Information: Patient Description of Symptoms (Recalled from Triage Doc. by RN): tooth ache/abscess HEENT Symptoms (Recalled from RN notes): No Resp Symptoms (Recalled from RN notes): No Skin Symptoms (Recalled from RN notes): No MS Symptoms (Recalled from RN notes): No Functional Status (Recalled from RN notes): yes - History of Present Illness Provider Complaint: Patient states that he has a broken tooth on left bottom in the back States that he noticed it has been hurting and then he started having swelling in his jaw area and has been unable to get into see a dentist States that today swelling was worse and he knew it was infected so he came in to get checked - Related Data Previous Rx's Medication Instructions Recorded Oxycodone HCl/Acetaminophen 1 tab PO Q6HP PRN #10 tab 06/13/19 [Percocet 5/325mg tablet] predniSONE [Prednisone 20mg 20 mg PO BID #10 tab 06/13/19 Tab] Amoxicillin/Potassium Clav 1 tab PO Q12H 10 Days #20 tab 12/26/20 [Augmentin 875-125 Tablet] Ibuprofen [Ibuprofen 800mg 800 mg PO TIDP PRN #20 tab 12/26/20 Tablet] Allergies Allergy/AdvReac Type Severity Reaction Status Date / Time No Known Allergies Allergy Verified 12/26/20 18:20 - Worker's Comp Is this a Worker's Comp case?: No Is this an H Worker's Comp?: No Is this a Honorio Worker's Comp?: No [facility] History - Hepatitis A Screen Drug use history?: No High risk sexual behaviors?: No History of sexually transmitted infection?: No Currently employed?: No Childcare worker?: No Do you have indoor plumbing?: Yes Do you have electricity?: Yes Attestation statement:: This patient has been screened for Hepatitis A risk factors. I have reviewed the patient's past medical history: Yes Medical History: Reports:: Myocardial Infarction Denies:: Cancer, Diabetes Mellitus Type 1, Diabetes Mellitus Type 2, Internal Pacemaker, MRSA Other Surgeries: Yes: Hernia Repair. No: Pacemaker Amputation: No Fractures: Yes - Social History Smoking Status: Current every day smoker Tobacco Type: cigarettes # Packs/Day (cigarettes): 1 Hui
[2020-12-26 19:08] VITALS: BP 134/86; PULSE 81; RESP 18; TEMP 36.7; O2SAT 98
== END 2020-12-26 19:08 | disposition home or self-care (01) ==
PROVIDERS: Emergency Provider Nurse Practitioner
DX: K04.7 Periapical abscess without sinus (principal); F17.210 Nicotine dependence, cigarettes, uncomplicated
CPT/HCPCS: 99202; G0463

== ENCOUNTER 2021-05-11 12:04 | Emergency (ER) | payer MEDICAID, SELFPAY ==
[2021-05-11 12:05] VITALS: BP 116/81; PULSE 81; RESP 16; TEMP 37.1; O2SAT 99; BMI 26.9
--- NOTE | 2021-05-11 12:27 | HMH.EDGENADL ---
ED Disposition Clinical Impression: Hordeolum externum (stye) Qualifiers: Laterality: left Eyelid: upper Qualified Code(s): H00.014 - Hordeolum externum left upper eyelid Disposition: Home, Self-Care Condition on Discharge: Good Instructions: DI for Hordeolum Additional Instructions: Augmentin as prescribed. Warm compresses to eye 20 minutes 4-5 times a day. Ibuprofen 800 mg every 8 hours, [id number]. Additional instructions for EYE PAIN or INJURY: Follow up with an eye doctor as soon as possible, see below. Return to the emergency department if severe pain, loss of vision, pus drainage, fever, or worsening swelling or redness of eyelids. Dr. Gallegos, [address], [place] [address] Prescriptions: Amoxicillin/Potassium Clav [Augmentin 875-125 Tablet] 1 tab PO Q12H #20 tab Transmission Status: Pending to [facility] Referrals: Provider,Referral, MD [Primary Care Provider] - - Critical Care Critical Care Time: No Attestation: On 05/11/21, the high probability of a clinically significant, sudden or life threatening deterioration of the following system(s) required my full and direct attention, intervention and personal management. The time I documented below is in addition to time spent performing reported procedures but includes the following listed in this critical care notation. Medical Decision Making - Emre Inquiry Pt receiving controlled substance: No General Adult HPI - General Stated complaint: left eye swollen, no accident Time Seen by Provider: 05/11/21 12:15 - History of Present Illness HPI narrative: States that he got blood in his left eye on Sunday 5 days ago. A couple of days later began having swelling of his eye. He has a picture taken of the swelling when it was at its worse. The picture shows swelling of his left upper eyelid with erythema. Slightly blurry vision left eye. No fever. The swelling increases at night and decreases some during the day. He does not wear glasses or contact lenses. - Related Data Previous Rx's Medication Instructions Recorded Oxycodone HCl/Acetaminophen 1 tab PO Q6HP PRN #10 tab 06/13/19 [Percocet 5/325mg tablet] predniSONE [Prednisone 20mg 20 mg PO BID #10 tab 06/13/19 Tab] Amoxicillin/Potassium Clav 1 tab PO Q12H 10 Days #20 tab 12/26/20 [Augmentin 875-125 Tablet] Ibuprofen [Ibuprofen 800mg 800 mg PO TIDP PRN #20 tab 12/26/20 Tablet] Amoxicillin/Potassium Clav 1 tab PO Q12H #20 tab 05/11/21 [Augmentin 875-125 Tablet] Allergies Allergy/AdvReac Type Severity Reaction Status Date / Time No Known Allergies Allergy Verified 12/26/20 18:20 [facility] History - Hepatitis A Screen Attestation statement:: This patient has been screened for Hepatitis A risk factors. I have reviewed the patient's past medical history: Yes Medical History: Reports:: Myocardial Infarction Denies:: Cancer, Diabetes Mellitus Type 1, Diabetes Mellitus Type 2, Internal Pacemaker, MRSA Other Surgeries: Yes: Hernia Repair. No: Pacemaker Amputation: No Fractures: Yes - Social History Smoking Status: Current every day smoker Tobacco Type: cigarettes # Packs/Day (cigarettes): 1 Alcohol Intake: never Occupational Status: other Housing: other Household Members: significant other, children Family Hx:: Coronary Artery Disease, Heart Attack (Father from [place] at 59) ROS Obtained: Yes Systems reviewed as appropriate & no additional complaints - Constitutional Constitutional: Denies fever(s) - Eyes Eyes: Reports as per HPI, Reports blurry vision, Reports eye pain Physical Exam - General General appearance: alert, in no apparent distress - Head Head exam: atraumatic, normocephalic - Eye Eye exam: Present: EOMI. Absent: discharge - Expanded Eye Exam Eyelids: left: erythema (left upper), stye (left upper), swelling eyelids (left upper) Pupi
--- NOTE | 2021-05-11 12:40 | PC.NURSE ---
visual acuity L 20/50 R 20/20 reported to QASIM ELIZONDO
[2021-05-11 12:55] VITALS: BP 116/81; PULSE 81; RESP 16; TEMP 37.1; O2SAT 99
== END 2021-05-11 12:55 | disposition home or self-care (01) ==
PROVIDERS: Emergency Provider Emergency Medicine
DX: H00.014 Hordeolum externum left upper eyelid (principal); I25.2 Old myocardial infarction; F17.210 Nicotine dependence, cigarettes, uncomplicated
CPT/HCPCS: 99282

== ENCOUNTER 2021-10-18 20:27 | Emergency (ER) | payer MEDICAID, SELFPAY ==
[2021-10-18 20:29] VITALS: BP 143/70; PULSE 84; RESP 16; TEMP 37.1; O2SAT 98; BMI 22.4
--- NOTE | 2021-10-18 20:52 | XR_ITS ---
PROCEDURE INFORMATION: Exam: XR Right Ankle Exam date and time: 10/18/2021 8:52 PM Age: 40 years old Clinical indication: Pain; Ankle; Right TECHNIQUE: Imaging protocol: Radiologic exam of the Right ankle. Views: 3 or more views. COMPARISON: CR XR FOOT RT MIN 3V 10/18/2021 8:50 PM FINDINGS: Bones/joints: Normal. Soft tissues: Normal. IMPRESSION: No acute findings.
--- NOTE | 2021-10-18 20:52 | XR_ITS ---
PROCEDURE INFORMATION: Exam: XR Right Foot Exam date and time: 10/18/2021 8:50 PM Age: 40 years old Clinical indication: Pain; Foot; Right; Additional info: Pain, log rolled on foot/ankle TECHNIQUE: Imaging protocol: Radiologic exam of the Right foot. Views: 3 or more views. COMPARISON: No relevant prior studies available. FINDINGS: Bones/joints: Normal. Soft tissues: Normal. IMPRESSION: No evidence of acute osseous abnormality.
--- NOTE | 2021-10-18 20:59 | HMH.EDLOEX ---
ED Disposition Clinical Impression: Right ankle injury Qualifiers: Encounter type: initial encounter Qualified Code(s): S99.911A - Unspecified injury of right ankle, initial encounter Right foot injury Qualifiers: Encounter type: initial encounter Qualified Code(s): S99.921A - Unspecified injury of right foot, initial encounter Disposition: Home, Self-Care Condition on Discharge: Good Instructions: DI for Ankle Sprain Additional Instructions: wt bearing as franchesca and ice and see pcp and podiatry for follow up Referrals: Provider,Referral, [Primary Care Provider] - Ashley Rosenbaum DPM [Staff Physician] - - Critical Care Critical Care Time: No Attestation: On 10/18/21, the high probability of a clinically significant, sudden or life threatening deterioration of the following system(s) required my full and direct attention, intervention and personal management. The time I documented below is in addition to time spent performing reported procedures but includes the following listed in this critical care notation. Medical Decision Making - Medical Records Medical records reviewed: Yes: I reviewed the patient's medical records. - Emre Inquiry Pt receiving controlled substance: No Vital Signs: 10/18/21 20:29 Temperature 98.7 F Temperature Source Oral Pulse Rate [Left] 84 Respiratory Rate 16 Blood Pressure [Right Arm] 143/70 H Blood Pressure Mean [Right Arm] 94 02 Sat by Pulse Oximetry 98 - Radiology Data #1 Image(s): Ankle, Foot/Toes Image Reviewed: Yes I have reviewed radiologist's interpretation Preliminary Findings: No Fracture Seen Medical Decision Narrative: has neg xrays with sts injury Lower Extremity Injury HPI - General Chief Complaint: Extremity Injury, Lower Stated Complaint: ao 10/18@1000 INJURED R ANKLE Time Seen by Provider: 10/18/21 20:59 Mode of Arrival: Wheelchair Source of Information: Patient, Spouse, Medical Record Limitations: No Limitations Description of Symptoms (Recalled from ER Triage Doc. by RN): pt c/o 9/10 pain in the right foot and ankle after a 15 inch log was bumped by a bobcat and it rolled over his foot - History of Present Illness HPI Narrative: acute injury rt lower ext as log rolled on leg this evening complaint: ankle injury, foot injury Onset (ago): hour(s) Injury: Right: ankle, foot Type of Injury: blunt Place: home Severity: moderate Context: direct blow Associated symptoms: swelling, able to partially bear weight Other symptoms: none - Related Data Previous Rx's Medication Instructions Recorded Oxycodone HCl/Acetaminophen 1 tab PO Q6HP PRN #10 tab 06/13/19 [Percocet 5/325mg tablet] predniSONE [Prednisone 20mg 20 mg PO BID #10 tab 06/13/19 Tab] Amoxicillin/Potassium Clav 1 tab PO Q12H 10 Days #20 tab 12/26/20 [Augmentin 875-125 Tablet] Ibuprofen [Ibuprofen 800mg 800 mg PO TIDP PRN #20 tab 12/26/20 Tablet] Amoxicillin/Potassium Clav 1 tab PO Q12H #20 tab 05/11/21 [Augmentin 875-125 Tablet] Allergies Allergy/AdvReac Type Severity Reaction Status Date / Time No Known Allergies Allergy Verified 12/26/20 18:20 [facility] History - Hepatitis A Screen Attestation statement:: This patient has been screened for Hepatitis A risk factors. I have reviewed the patient's past medical history: Yes Medical History: Reports:: Myocardial Infarction Denies:: Cancer, Diabetes Mellitus Type 1, Diabetes Mellitus Type 2, Internal Pacemaker, MRSA Other Surgeries: Yes: Hernia Repair. No: Pacemaker Amputation: No Fractures: Yes - Social History Smoking Status: Current every day smoker Tobacco Type: cigarettes # Packs/Day (cigarettes): 1 Alcohol Intake: never Occupational Status: other Housing: other Household Members: significant other, children Family Hx:: Coronary Artery Disease, Heart Attack (Father from [place] at 59) ROS Obtained: Yes All systems reviewed & no additional complaints - Constitutional
[2021-10-18 21:46] VITALS: BP 147/72; PULSE 82; RESP 16; TEMP 37.1; O2SAT 98
== END 2021-10-18 21:50 | disposition home or self-care (01) ==
PROVIDERS: Emergency Provider Emergency Medicine
DX: S99.911A Unspecified injury of right ankle, initial encounter (principal); S99.921A Unspecified injury of right foot, initial encounter; I25.2 Old myocardial infarction; F17.210 Nicotine dependence, cigarettes, uncomplicated; Z79.1 Long term (current) use of non-steroidal anti-inflammatories (NSAID); Z79.52 Long term (current) use of systemic steroids; Z82.49 Family history of ischemic heart disease and other diseases of the circulatory system; W22.8XXA Striking against or struck by other objects, initial encounter
CPT/HCPCS: 73610; 73630; 99283

== ENCOUNTER 2022-09-14 22:13 | Emergency (ER) | payer MEDICAID, SELFPAY ==
[2022-09-14 22:14] VITALS: BP 151/93; PULSE 75; RESP 18; TEMP 36.9; O2SAT 98; BMI 23.2
--- NOTE | 2022-09-14 22:29 | CT_ITS ---
PROCEDURE INFORMATION: Exam: CT Abdomen And Pelvis With Contrast Exam date and time: 09/14/2022 10:59 PM Age: 41 years old Clinical indication: Other: Blood in urine TECHNIQUE: Imaging protocol: Computed tomography of the abdomen and pelvis with contrast. Radiation optimization: All CT scans at this facility use at least one of these dose optimization techniques: automated exposure control; mA and/or kV adjustment per patient size (includes targeted exams where dose is matched to clinical indication); or iterative reconstruction. Contrast material: ISOVUE; Contrast volume: 75 ml; Contrast route: IV; REPORTING DATA: Count of CT and Cardiac NM exams in prior 12 months: This patient has received 0 known CTs and 0 known cardiac nuclear medicine studies in the 12 months prior to the current study. COMPARISON: CT LUMBAR SPINE WO CON 06/12/2019 11:35 PM FINDINGS: Lungs: Lung bases are clear. Liver: Liver is unremarkable. No mass or enlargement detected. Gallbladder and bile ducts: Gallbladder is contracted limiting its assessment. Bile ducts are not dilated. Pancreas: Unremarkable. Main pancreatic duct is not significantly dilated. Spleen: Normal. No splenomegaly. Adrenal glands: Normal. No mass. Kidneys and ureters: Right kidney is relatively small and atrophic. Left kidney is unremarkable. Stomach and bowel: Unremarkable. No obstruction. No mucosal thickening. Appendix: No evidence of appendicitis. Intraperitoneal space: Unremarkable. No free air. No significant fluid collection. Vasculature: Unremarkable. No abdominal aortic aneurysm. Lymph nodes: Few small pelvic lymph nodes within the lower pelvis bilaterally likely benign based by size criteria. 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 Reproductive: Unremarkable as visualized. Bones/joints: Unremarkable. No acute fracture. Soft tissues: Unremarkable. IMPRESSION: 1. 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 2. Scattered small lymph nodes lower pelvis likely benign based on size criteria but needs follow-up for clarification. 3. Atrophic right kidney. 4. Limited assessment of the gallbladder.
[2022-09-14 22:31] LABS: Microscopic, Urine URINE MICROSCOPIC (MICROSCOPIC)
--- NOTE | 2022-09-14 22:36 | HMH.EDUROGM ---
Discharge Plan Disposition Patient Disposition: Home, Self-Care Prescriptions Prescriptions: New levofloxacin 500 mg tablet 500 mg PO DAILY Qty: 7 0RF No Action ibuprofen 800 MG tablet 800 mg PO TIDP PRN (Reason: Moderate Pain) Qty: 20 0RF amoxicillin-pot clavulanate 1 EACH tablet 1 tab PO Q12H 10 Days Qty: 20 0RF amoxicillin-pot clavulanate 1 EACH tablet 1 tab PO Q12H Qty: 20 0RF prednisone 20 MG tablet 20 mg PO BID Qty: 10 0RF oxycodone-acetaminophen 1 EACH tablet 1 tab PO Q6HP PRN (Reason: Moderate To Severe Pain) Qty: 10 0RF Referrals Follow up/Referrals: Provider,Nessa, [Primary Care Provider] - See instructions Delano Porter MD [Referring] - See instructions Clinical Impressions Clinical Impression: Hematuria, Mass of urinary bladder Instructions Patient Instructions: DI for Hematuria Discharge ED Provider: Vitor (ED),German [place]as Male Urogenital HPI General Chief complaint: Urogenital-Male Stated complaint: blood in urine Time Seen by Provider: 09/14/22 22:20 Mode of Arrival: Ambulatory Source of Information: Patient and Medical Record Limitations: No Limitations Description of Symptoms (Recalled from ER Triage Doc. by RN): Hematuria with clots. States he had an epidsode 1 month ago and it went away, pt started bleeding again 1 week ago. Urine is dark red in color. Denies any other symptoms at this time. History of Present Illness HPI Narrative: bloody urine over the last week with no fever or pain - hx of same about 1 month ago Complaint: other (hematuria) Onset (ago): day(s) Duration: intermittent Severity: moderate Reports blood in urine Related Data Sexually active: Yes Previous Rx's Medication Instructions Recorded oxycodone-acetaminophen 5 mg-325 1 tab PO Q6HP PRN Moderate To 06/13/19 mg tablet Severe Pain #10 tabs prednisone 20 mg tablet 20 mg PO BID #10 tabs 06/13/19 amoxicillin 875 mg-potassium 1 tab PO Q12H 10 days #20 tabs 12/26/20 clavulanate 125 mg tablet ibuprofen 800 mg tablet 800 mg PO TIDP PRN Moderate Pain 12/26/20 #20 tabs amoxicillin 875 mg-potassium 1 tab PO Q12H #20 tabs 05/11/21 clavulanate 125 mg tablet levofloxacin 500 mg tablet 500 mg PO DAILY #7 tabs 09/15/22 Allergies Allergy/AdvReac Type Severity Reaction Status Date / Time No Known Allergies Allergy Verified 12/26/20 18:20 [facility] Disclaimer: The information contained in this section may have been updated after the patient was seen, as this information can be updated by other users. 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 current occupational exposures/hazards: No caffeine: Yes ROS Obtained: Yes All systems reviewed & no additional complaints except as documented Physical Exam General General appearance: alert Head Head exam: normocephalic Eye Eye exam: Present PERRL and EOMI ENT ENT exam: Present mucous membranes moist Neck Neck exam: Present trachea midline Respiratory Respiratory exam: Absent respiratory distress Cardiovascular Cardiovascular exam: Present regular rate Abdominal Exam Abdominal exam: Present soft; Absent tenderness, guarding or rebound Extremities Exam Extremities exam: Present full ROM Neurological Exam Neurological exam: Present alert, oriented X3 and CN II-XII intact; Absent motor sensory deficit Psychiatric Psychiatric exam: Present normal affect Skin Skin exam: Absent rash Medical Decision Making Medical Records Medical records reviewed: Yes I reviewed the patient's medical records. Emre Inquiry Pt receiving controlled substance: No Vital Signs: 09/14/22 22:14 Temperature 98.4 F Temperature Source Oral
[2022-09-14 22:39] LABS: Appearance,Urine CLOUDY (Clear); Blood, Urine 3+ (Negative); Color,Urine RED (Yellow); Glucose,Urine (UA) TRACE (Negative); Ketones,Urine 1+ (Negative); Leukocyte Esterase,Urine 1+ (Negative); Nitrate,Urine POSITIVE (Negative); PH,Urine 6.5 (5.0-8.5); Protein,Urine 3+ (Negative); Specific Gravity, Urine 1.025 (1.005-1.030)
[2022-09-14 22:40] LABS: Bilirubin,Urine 1+ (Negative)
[2022-09-14 22:42] LABS: Bacteria,Urine Trace /lpf; RBC,Urine TNTC #/hpf (0-3); Squamous Epithelial Cell,Urine Occasional #/hpf (0-5)
[2022-09-14 22:43] LABS: Basophils # 0.1 K/mm3 (0-0.2); Basophils % 0.4 % (0.1-2.0); Eosinophils # 0.2 K/mm3 (0.0-0.4); Eosinophils % 1.6 % (0.1-12.0); Hematocrit 40.4 % (42.0-52.0); Hemoglobin 13.2 g/dL (14.1-18.0); Lymphocytes % 42.3 % (10-50); Mean Corpuscular HGB Conc 32.7 g/dL (31.8-35.4); Mean Corpuscular Hemoglobin 32.8 pg (27.0-31.2); Mean Corpuscular Volume 100.2 fl (80-94); Mean Platelet Volume 7.3 fl (7.4-10.4); Monocytes # 0.5 K/mm3 (0.1-1.0); Monocytes % 4.6 % (1.7-9.3); Neutrophils # 6.1 K/mm3 (1.8-7.8); Neutrophils % 51.1 % (37.0-80.0); Platelet Count 288 K/mm3 (142-424); Red Blood Count 4.03 M/mm3 (4.60-6.20); Red Cell Distribution Width 13.7 % (11.5-17.5); White Blood Count 11.8 K/mm3 (4.8-10.8)
[2022-09-15 00:21] VITALS: BP 122/81; PULSE 60; RESP 16; TEMP 36.9; O2SAT 98
[2022-09-15 06:04] LABS: Erythrocyte Sedimentation Rate 13 mm/hr (0-15)
[2022-09-15 06:06] LABS: Alanine Aminotransferase 21 U/L (12-78); Anion Gap 13.1 mEq/L (5-15); Aspartate Amino Transferase 26 U/L (17-59); Bilirubin,Total 6.8 mg/dl (0.2-1.3); Blood Urea Nitrogen 13 mg/dl (9-20); C-Reactive Protein 5.1 mg/L (0-4); Calcium 8.4 mg/dl (8.4-10.2); Carbon Dioxide 26 mmol/L (22.0-30.0); Chloride 106 mmol/L (98-107); Creatinine Clearance Estimated 138 mL/min (50-200); Estimated Glomerular Filt Rate 106 ml/min (>60); GFR (African American) 128 ML/MIN (>60); Glucose 94 mg/dl (74-100); Potassium 4.1 mmoL/L (3.5-5.1); Sodium 141 mmol/L (136-145)
[2022-09-15 06:07] LABS: Albumin/Globulin Ratio 1.4 (1.1-1.8); Alkaline Phosphatase 53 U/L (38-126); Globulin 2.8 g/dL (1.3-3.2); Procalcitonin 0.051 ng/mL (0.0-2.0); Total Protein,Serum 6.8 g/dl (6.3-8.2)
== END 2022-09-15 00:21 | disposition home or self-care (01) ==
PROVIDERS: Emergency Provider Emergency Medicine
DX: D41.4 Neoplasm of uncertain behavior of bladder (principal); R31.9 Hematuria, unspecified; F17.210 Nicotine dependence, cigarettes, uncomplicated
CPT/HCPCS: 74177; 80053; 81001; 84145; 85025; 85651; 86140; 87086; 96360; 99284; 99285; Q9967

== ENCOUNTER 2024-11-21 13:13 | Outpatient (CLI) | payer MEDICAID, SELFPAY ==
--- OUTSIDE RECORDS SUMMARY | 2024-11-21 13:15 | XMS_ITS | Encounter Summary ---
Author Organization Healthcare Address [address] [place] [address] Care Team Providers Care Gaming Dealer Name Role Phone Pcp, No Primary Care Provider Unavailabl e Encounter Details Date Type Department Care Team ([facility] st Contact Info) Description 09/14/2022 Orders Only External Location [address] [place] [address] Provider, External Social History Tobacco Use Types Packs/Day Years Used Date Smoking Tobacco: Never Assessed Sex and Gender Information Value Date Recorded Sex Assigned at Not on file Legal Sex Male 8:14 PM EDT Gender Identity Not on file Sexual Orientation Not on file documented as of this encounter Plan of Treatment Not on file documented as of this encounter Procedures Procedure Name Priority Date/Time Associated Diagnosis Comments CT ABDOMEN PELVIS W IV CONTRAST 09/14/2022 10:59 PM EDT documented in this encounter Results * CT Abdomen Pelvis w IV Contrast (09/14/2022 10:59 PM EDT) Anatomical Region Laterality Modality Abdomen, Pelvis Computed Tomogra phy 09/14/2022 10:5 9 PM EDT us External Provider IMG CT PROCEDURES Final Result documented in this encounter Visit Diagnoses Not on filedocumented in this encounter Care Teams Gaming Dealer Relationship Specialty Start Date End Date Pcp, No [address] [place] [address] PCP - General Family Medicine 10/26/22 documented as of this encounter
--- OUTSIDE RECORDS SUMMARY | 2024-11-21 13:15 | XMS_ITS | Clinical Summary ---
[facility] [address] [place] [address] Care Team Providers Care Software Engineer Advisor Name Role Phone Unavailable Primary Care Provider Unavailabl e Encounters Date Type Department Care Team Description 11/18/2024 Telephone [facility] [address] [place] [phone] Khang Stewart MD from Last 3 Months Social History Tobacco Use Types Packs/Day Years Used Date Smoking Tobacco: Never Assessed Sex and Gender Information Value Date Recorded Sex Assigned at Not on file Legal Sex Male 9:00 AM EDT Gender Identity Not on file Sexual Orientation Not on file Plan of Treatment Health Maintenance Due Date Last Done Comments TDAP/TD VACCINES (1 - Tdap) 1997 COVID-19 Vaccine (2023-2 5 season) 2023 COLOGUARD 12/12/2023 COLON CANCER SCREENING 5 YEA R SIGMOIDOSCOPY 12/12/2023 COLONOSCOPY 12/12/2023 COLORECTAL CANCER SCREENING 12/12/2023 CT COLONOGRAPHY 12/12/2023 FECAL OCCULT BLOOD TEST 12/12/2023 FIT Testing (1 year) 12/12/2023 ANNUAL PHYSICAL 11/18/2024 HEPATITIS C SCREENING 11/18/2024 INFLUENZA VACCINE 01/07/2025 Pneumococcal Vaccine 0-49 Aged Out No longer eligible based on patient's age to complete this topic Insurance [facility] MEDICAID
--- OUTSIDE RECORDS SUMMARY | 2024-11-21 13:15 | XMS_ITS | Encounter Summary ---
[facility] [address] [place] [address] Care Team Providers Care Solar Energy Advisor Name Role Phone Unavailable Primary Care Provider Unavailabl e Encounter Details Date Type Department Care Team (Late st Contact Info) Description 11/18/2024 Telephone [facility] UROLOGY [address] [phone] Khang Stewart MD [address] [facility] [address] [place], [place] [phone] Social History Tobacco Use Types Packs/Day Years Used Date Smoking Tobacco: Never Assessed Sex and Gender Information Value Date Recorded Sex Assigned at Not on file Legal Sex Male 9:00 AM EDT Gender Identity Not on file Sexual Orientation Not on file documented as of this encounter Miscellaneous Notes * Telephone Encounter - Ilene Peralta RegSched Rep - 11/18/2024 1:48 PM EDT Pt called asking about why we couldn't see the pt. He has never been seen here before so she wasn't listed on anything to receive pt information. She said she would have him call back. documented in this encounter Plan of Treatment Not on file documented as of this encounter Visit Diagnoses Not on filedocumented in this encounter
--- OUTSIDE RECORDS SUMMARY | 2024-11-21 13:15 | XMS_ITS | Encounter Summary ---
Author Organization Healthcare Address [address] [place] [address] Care Team Providers Care Night Order Selector Name Role Phone Pcp, No Primary Care Provider Unavailabl e Encounter Details Date Type Department Care Team ([facility] st Contact Info) Description 09/14/2022 Orders Only External Location [address] [place] [address] Provider, External Social History Tobacco Use Types [...] on filedocumented in this encounter Care Teams Night Order Selector Relationship Specialty Start Date End Date Pcp, No [address] [place] [address] PCP - General Family Medicine 10/26/22 documented as of this encounter
--- OUTSIDE RECORDS SUMMARY | 2024-11-21 13:17 | XMS_ITS | Clinical Summary ---
Author Organization Healthcare [facility] [address] [facility] [place] [address] Care Team Providers Care Bowling Teacher Name Role Phone Pcp, No Primary Care Provider Unavailabl e Allergies No known active allergies Medications No known medications Active Problems Problem Noted Date Diagnosed Date Tobacco use disorder 12/27/2022 Second hand smoke exposure 12/27/2022 Family History Medical History Relation Name Comments Breast cancer Sister Relation Name Status Comments Sister Other breast cancer Social History Tobacco Use Types Packs/Day Years Used Date Smoking Tobacco: Every Day Cigarettes Smokeless Tobacco: Never Tobacco Cessation:Ready to Q uit: Yes; Counseling Given: Not Answered Alcohol Use Standard Drinks/Week Comments Never 0 (1 standard drink = 0.6 oz pur e alcohol) PHQ-2 Answer Date Recorded Patient Health Questionnaire-2 Score 0 10/16/2022 PHQ-2A Answer Date Recorded Patient Health Questionnaire-2 Score 0 10/16/2022 Sex and Gender Information Value Date Recorded Sex Assigned at Not on file Legal Sex Male 8:14 PM EDT Gender Identity Not on file Sexual Orientation Not on file Last Filed Vital Signs Vital Sign Reading Time Taken Comments Blood Pressure 130/83 12/27/2022 9:35 AM EDT Pulse 61 12/27/2022 9:35 AM EDT Temperature 36.7 C (98 F) 12/27/2022 9:35 AM EDT Respiratory Rate 22 10/26/2022 5:15 PM EDT Oxygen Saturation 96% 12/27/2022 9:35 AM EDT Inhaled Oxygen Concentration - - Weight 79.6 kg (175 lb 7.8 oz) 12/27/2022 9:35 A M EDT Height 188 cm (6' 2 ) 12/27/2022 9:35 AM EDT Body Mass Index 22.53 12/27/2022 9:35 AM EDT Plan of Treatment Health Maintenance Due Date Last Done Comments [facility]-HIV Screening 1978 [facility]-Hepatitis C Screening 1978 [facility]-Infant/Child/Adol SDOH Screenings 1978 [facility]- SDOH Screenings 1996 [facility]-Adult SDOH Screenings 1996 [facility]-DTaP,Tdap,and Td Vaccine s (1 - Tdap) 1997 [facility]-Hepatitis B Vaccines (1 of 3 - 19+ 3-dose series) 1997 HPV Vaccines (1 - 3-dose SCD M series) 2005 [facility]-Depression Screening 10/17/2023 10/16/2022 [id number] Vaccine (1 - 20 24-25 season) 2023 CT Colonography 12/12/2023 Colonoscopy 12/12/2023 FIT-DNA 12/12/2023 FIT 12/12/2023 FOBT 12/12/2023 Sigmoidoscopy 12/12/2023 [facility]-Colorectal Cancer Screening 12/12/2023 [facility]-Influenza Vaccine (#1) 2024 [facility]-Zoster Vaccines (1 of 2) 2028 [facility]-HIB Vaccines Aged Out No longer e ligible based on patient's age to complete this topic [facility]-Hepatitis A Vaccines Aged Out No longer eligible based on patient's age to complete this topic [facility]-IPV Vaccines Aged Out No longer e ligible based on patient's age to complete this topic [facility]-Pneumococcal Vaccine: Pediatrics (0 to 5 Years) and At-Risk Patients (6 to 49 Years) Aged Out No long er eligible based on patient's age to complete this topic [facility]-Rotavirus Vaccines Aged Out No lo nger eligible based on patient's age to complete this topic Insurance [employer] MEDICA[employer] Care Teams Bowling Teacher Relationship Specialty Start Date End Date Pcp, [place] [address] PCP - General Family Medicine 10/26/22
--- OUTSIDE RECORDS SUMMARY | 2024-11-21 13:17 | XMS_ITS | Patient Health Record ---
Author Organization [facility] Address [address] [facility] [address] [place], [place] [id number] Care Team Providers Care Human Resources Hr Generalist Name Role Phone LAVELL GRIMES Primary Care Provider [phone] Allergies No Known Allergies Reason For Referral No Information Social History Tobacco Use: Social History Observation Description Date Details (start date - stop date) Current Smoker 1992 - NA Tobacco Use/Smoking Question Answer Notes Tobacco use: current smoker When did you start smoking? 1992 How often do you smoke cigarettes? every day How many cigarettes a day do you smoke? 31 or mo re How soon after you wake up do you smoke your fir st cigarette? within 5 minutes Are you interested in quitting? Not ready to sarita t Plan Of Treatment No Information Medical (General) History Hospitalization History Reason Date(Month/Year) pneumonia
[2024-11-21 13:48] LABS: Hematocrit 38.8 % (42.0-52.0); Hemoglobin 13.5 g/dL (14.1-18.0); Immature Granulocytes % 0.3 %; Mean Corpuscular HGB Conc 34.8 g/dL (31.8-35.4); Mean Corpuscular Hemoglobin 33.1 pg (27.0-31.2); Mean Corpuscular Volume 95.1 fl (80-94); Nucleated Red Blood Cells % 0 %; Platelet Count 300 K/mm3 (142-424); Red Blood Count 4.08 M/mm3 (4.60-6.20); Red Cell Distribution Width-SD 45.5 fL; White Blood Count 10.7 K/mm3 (4.8-10.8)
--- NOTE | 2024-11-21 14:00 | CT_ITS ---
FINAL REPORT TECHNIQUE: Axial CT of the abdomen and pelvis, without and with IV contrast. This study was performed with techniques to keep radiation doses as low as reasonably achievable, (ALARA). Individualized dose reduction techniques using automated exposure control or adjustment of mA and/or kV according to the patient's size were employed. CLINICAL HISTORY: RLQ abdominal pain; h/o bladder cancer COMPARISON: 09/14/2022 FINDINGS: Abdomen: Lung bases are clear. Liver has an unremarkable CT appearance. The spleen, pancreas and adrenal glands are unremarkable. The gallbladder is unremarkable. There are a few small retroperitoneal lymph nodes present, which are stable in appearance and considered benign reactive. There is severe atrophy of the right kidney present. There is compensatory hypertrophy of the left kidney. Precontrast imaging shows no renal stone disease. Postcontrast imaging of the kidneys shows no mass or obstruction. No bowel obstruction or fluid collection is seen. Pelvis: The appendix is normal in appearance. Pelvic bowel loops are unremarkable. There are at least 5 bladder masses present. The dominant mass is seen on the prior CT of 2022 has decreased in size, was previously 5.9 x 5.9 cm and currently measures 3 x 3.3 cm. However, other masses are new predominantly in the left side of the bladder. These ranged in size from 2.2 to 3.7 cm. Bilateral inguinal adenopathy is present, the largest node on the right measuring 1.5 x 0.8 cm in size, stable. There is a large left inguinal node measuring 2.2 x 1.1 cm in size, previously measured 2.0 x 0.9 cm, minimally increased in size. IMPRESSION: 1. Compared with the previous CT examination of 2022, there has been improvement in size of the prior dominant single mass. However, multiple new bladder masses are now identified, highly suspicious for neoplasm. 2. No evidence of upper urinary tract obstruction, although the left lateral mass is at high risk for distal ureteral obstruction. 3. There is no intra-abdominal or pelvic metastatic adenopathy identified. Bilateral mild inguinal adenopathy is considered indeterminate. Reviewed, Interpreted and Dictated by Salinas Elmore MD Transcribed by Ching Headley Authenticated and [facility]
[2024-11-21 14:23] LABS: Alanine Aminotransferase 22 U/L (12-78); Albumin Level 4.2 g/dl (3.5-5.0); Albumin/Globulin Ratio 1.7 (1.1-1.8); Alkaline Phosphatase 64 U/L (38-126); Anion Gap 11.2 mEq/L (5-15); Aspartate Amino Transferase 28 U/L (17-59); Bilirubin,Total 0.2 mg/dl (0.2-1.3); Blood Urea Nitrogen 16 mg/dl (9-20); Calcium 9.1 mg/dl (8.4-10.2); Carbon Dioxide 25 mmol/L (22.0-30.0); Chloride 106 mmol/L (98-107); Creatinine,Serum 0.80 mg/dl (0.66-1.25); Estimated Glomerular Filt Rate 105 ml/min (>60); GFR (African American) 126 ML/MIN (>60); Globulin 2.5 g/dL (1.3-3.2); Glucose 108 mg/dl (74-100); Potassium 4.2 mmoL/L (3.5-5.1); Sodium 138 mmol/L (136-145); Total Protein,Serum 6.7 g/dl (6.3-8.2)
[2024-11-21] MEDS: IOPAMIDOL-370 (76%);100ML BOTTLE 75 ML IV (14:41)
[2024-11-21] MEDS: SODIUM CHLORIDE 0.9% 10ML SYR (RAD ONLY) 10 ML IV (14:41)
[2024-11-21 16:37] LABS: Hepatitis C Ab Qual. W/ RFX NEGATIVE (Negative)
[2024-11-22 05:13] LABS: Hepatitis B Surface Antigen Negative (Negative)
== END 2024-11-21 23:59 | disposition home or self-care (01) ==
LOC: RAD 13:13
PROVIDERS: PCP Family Medicine; Visit Provider Family Medicine
DX: N32.89 Other specified disorders of bladder (principal); R93.41 Abnormal radiologic findings on diagnostic imaging of renal pelvis, ureter, or bladder; R59.0 Localized enlarged lymph nodes; R31.9 Hematuria, unspecified; R10.31 Right lower quadrant pain; Z85.51 Personal history of malignant neoplasm of bladder; Z11.59 Encounter for screening for other viral diseases; Z11.4 Encounter for screening for human immunodeficiency virus [HIV]
CPT/HCPCS: 36415; 74178; 80053; 85025; 86803; 87340; 87389; Q9967

== ENCOUNTER 2025-03-13 14:15 | Outpatient (CLI) | payer MEDICAID, SELFPAY ==
--- NOTE | 2025-03-13 14:18 | MR_ITS ---
FINAL REPORT CLINICAL HISTORY: mid back pain COMPARISON: None FINDINGS: Multiplanar MR imaging of the thoracic spine was performed without contrast. There is posterior laminectomy defect in the upper thoracic spine from approximately T3 through T6. On the sagittal T2-weighted images, there is mild decreased signal in the mid and lower thoracic spine. There is no evidence of fracture. The vertebral alignment is normal. No bony mass is identified. The thoracic spinal cord has an unremarkable appearance without evidence of mass, edema or syrinx. There is no evidence of canal stenosis or cord compression. On the axial images, no focal disc protrusion is identified. There is no evidence of significant canal stenosis. There is a fluid collection in the midline measuring 7.3 cm craniocaudal dimension and 2.0 cm in transverse dimension. There is a fluid fluid level within this fluid collection. IMPRESSION: Fluid collection in the midline associated with post laminectomy defects from approximately T3 through T6, probably postop seroma or hematoma. Correlate with past surgical history. Reviewed, Interpreted and Dictated by Kumar Ruiz MD Transcribed by Molly Isaac Authenticated and [facility]
== END 2025-03-13 23:59 | disposition home or self-care (01) ==
LOC: RAD 14:16
PROVIDERS: PCP Family Medicine; Visit Provider Neurological Surgery
DX: G96.198 Other disorders of meninges, not elsewhere classified (principal); R93.7 Abnormal findings on diagnostic imaging of other parts of musculoskeletal system; Z98.890 Other specified postprocedural states
CPT/HCPCS: 72146

== ENCOUNTER 2025-04-08 13:00 | Outpatient (RCR) | payer MEDICAID, SELFPAY | END 2025-04-08 23:59 | disposition home or self-care (01) | LOC: PT.CARL 13:00 | PROVIDERS: PCP Family Medicine; Visit Provider Neurological Surgery | DX: Z98.890 Other specified postprocedural states (principal) | CPT/HCPCS: 97110; 97112; 97162; 97530 ==